=== PATIENT | male | born 1955 | race Caucasian/White ===

== ENCOUNTER 2017-09-28 09:46 | Inpatient (IN) | payer BC ==
[2017-09-28] MEDS ORDERED: NITROGLYCERIN 2% 1 GM OINT PKT TD (10:06)
[2017-09-28] MEDS ORDERED: ASPIRIN 81 MG TAB PO (10:06)
[2017-09-28] MEDS ORDERED: NITROGLYCERIN (SL) 0.4 MG TAB SL (10:30)
[2017-09-28 10:43] LABS: ADD MAN DIFF? NO
[2017-09-28 10:45] LABS: WHITE BLOOD COUNT 16.2 10^3/ul (4.8-10.8)
[2017-09-28 10:45] LABS: BASOPHIL # 0.1 10^3/ul (0.0-0.1); BASOPHILS % 0.4 % (0.0-2.0); EOSINOPHILS # 0.1 10^3/ul (0.0-0.5); EOSINOPHILS % 0.7 % (0.0-7.0); HEMATOCRIT 39.9 % (42.0-52.0); HEMOGLOBIN 12.7 g/dl (14.0-18.0); LYMPHOCYTES # 2.8 10^3/ul (0.8-2.9); LYMPHOCYTES % 17.3 % (15.0-51.0); MEAN CORPUSCULAR HEMOGLOBIN 27.3 pg (29.0-33.0); MEAN CORPUSCULAR HGB CONC 31.8 g/dl (32.0-37.0); MEAN CORPUSCULAR VOLUME 85.6 fl (82.0-101.0); MEAN PLATELET VOLUME 8.9 fl (7.4-10.4); MONOCYTE # 1.1 10^3/ul (0.3-0.9); MONOCYTES % 6.7 % (0.0-11.0); NEUTROPHILS % 74.4 % (39.0-77.0); PLATELET COUNT 473 10^3/UL (140-415); RED BLOOD COUNT 4.66 10^6/ul (4.70-6.10); RED CELL DISTRIBUTION WIDTH 14.9 % (11.5-14.5)
[2017-09-28] MEDS: ONDANSETRON 4 MG INJ IV ×2 (11:08→15:54)
[2017-09-28 11:13] LABS: ALANINE AMINOTRANSFERASE 20 IU/L (13-69); ALBUMIN 4.1 g/dl (3.3-4.9); ALKALINE PHOSPHATASE 137 IU/L (42-121); ASPARTATE AMINO TRANSFERASE 23 IU/L (15-46); LIPASE 146 U/L (23-300); TOTAL PROTEIN 8.4 g/dl (6.1-8.1)
[2017-09-28 11:18] LABS: INR 1.06; PARTIAL THROMBOPLASTIN TIME 33.8 Sec (25.0-35.0); PROTIME 13.9 Sec (11.9-14.9); PT RATIO 1.1
[2017-09-28 11:22] LABS: ANION GAP 18 (8-16); BLOOD UREA NITROGEN 18 mg/dl (7-20); CALCIUM 9.5 mg/dl (8.4-10.2); CARBON DIOXIDE 26 mmol/L (21-31); CHLORIDE 104 mmol/L (97-110); CREATININE 1.45 mg/dl (0.61-1.24); GLUCOSE 98 mg/dl (70-220); POTASSIUM 3.9 mmol/L (3.5-5.1); SODIUM 144 mmol/L (135-144)
[2017-09-28 11:36] LABS: TROPONIN-I < 0.012 ng/ml (0.00-0.12)
[2017-09-28] MEDS ORDERED: ZOLPIDEM 5 MG TAB PO (12:00)
[2017-09-28] MEDS ORDERED: NACL 0.9% 3 ML SYG IV (12:00)
[2017-09-28] MEDS ORDERED: HYDROCODONE/APAP (5/325) TAB PO (12:00)
[2017-09-28] MEDS ORDERED: MAGNESIUM HYDROXIDE 30ML CUP PO (12:00)
[2017-09-28] MEDS ORDERED: ONDANSETRON 4 MG INJ IV (12:00)
[2017-09-28] MEDS ORDERED: morphine 2 MG INJ IV (12:00)
[2017-09-28] MEDS ORDERED: DOCUSATE SODIUM 100 MG CAP PO (12:00)
[2017-09-28] MEDS ORDERED: ACETAMINOPHEN 325 MG TAB PO ×2 (12:00)
[2017-09-28 13:42] LABS: CARCINOEMBRYONIC ANTIGEN 1.3 ng/ml (0.0-5.0)
[2017-09-28 13:47] LABS: CANCER ANTIGEN 19-9 < 1.4 U/ml (0.0-37.0)
[2017-09-28] MEDS: 1/2 NS + KCL 20 MEQ 1,000 ML IV (13:49)
[2017-09-28 15:39] LABS: CREATINE KINASE 86 IU/L (23-200)
[2017-09-28 15:52] LABS: CK INDEX 0.5
[2017-09-28 15:53] LABS: TROPONIN-I < 0.012 ng/ml (0.00-0.12)
[2017-09-28 16:12] LABS: ADD UMIC YES; UR ASCORBIC ACID NEGATIVE (NEGATIVE); UR BACTERIA FEW /HPF (NONE SEEN); UR BILIRUBIN (Dip) NEGATIVE (NEGATIVE); UR BLOOD (Dip) NEGATIVE (NEGATIVE); UR CLARITY CLEAR (CLEAR); UR COLOR YELLOW (YELLOW); UR GLUCOSE (Dip) NEGATIVE (NEGATIVE); UR KETONES (Dip) 2+ mg/dL (NEGATIVE); UR LEUKOCYTE ESTERASE (Dip) 2+ Leu/ul (NEGATIVE); UR MUCUS FEW /HPF (NONE SEEN); UR NITRITE (Dip) NEGATIVE (NEGATIVE); UR RBC 8 /HPF (0-5); UR SPECIFIC GRAVITY (Dip) 1.024 (1.003-1.030); UR TOTAL PROTEIN (Dip) 2+ mg/dl (NEGATIVE); UR UROBILINOGEN (Dip) 2+ mg/dL (NEGATIVE); UR WBC 51 /HPF (0-5)
[2017-09-28 19:38] LABS: COMPLEMENT C3 106 mg/dl (88-165); COMPLEMENT C4 29 mg/dl (14-44)
[2017-09-28 22:35] LABS: CREATINE KINASE 94 IU/L (23-200)
[2017-09-28 22:48] LABS: CK INDEX 0.8
[2017-09-28 22:49] LABS: CK-MB 0.77 ng/ml (0.0-2.4); TROPONIN-I < 0.012 ng/ml (0.00-0.12)
[2017-09-29 08:17] LABS: ADD MAN DIFF? NO; HAAIG REFLEX REFLEX FILED
[2017-09-29 08:25] LABS: BASOPHIL # 0.1 10^3/ul (0.0-0.1); BASOPHILS % 0.4 % (0.0-2.0); EOSINOPHILS # 0.2 10^3/ul (0.0-0.5); EOSINOPHILS % 1.3 % (0.0-7.0); HEMATOCRIT 37.6 % (42.0-52.0); LYMPHOCYTES # 2.6 10^3/ul (0.8-2.9); LYMPHOCYTES % 17.6 % (15.0-51.0); MEAN CORPUSCULAR HEMOGLOBIN 27.1 pg (29.0-33.0); MEAN CORPUSCULAR HGB CONC 31.9 g/dl (32.0-37.0); MEAN CORPUSCULAR VOLUME 85.1 fl (82.0-101.0); MONOCYTE # 0.9 10^3/ul (0.3-0.9); MONOCYTES % 6.2 % (0.0-11.0); NEUTROPHIL # 11.1 10^3/ul (1.6-7.5); NEUTROPHILS % 74.1 % (39.0-77.0); PLATELET COUNT 483 10^3/UL (140-415); RED BLOOD COUNT 4.42 10^6/ul (4.70-6.10); RED CELL DISTRIBUTION WIDTH 14.6 % (11.5-14.5)
[2017-09-29 08:35] LABS: HEMOGLOBIN A1C 5.1 % (0-5.9)
[2017-09-29 08:48] LABS: ALANINE AMINOTRANSFERASE 15 IU/L (13-69); ALBUMIN 3.7 g/dl (3.3-4.9); ALKALINE PHOSPHATASE 120 IU/L (42-121); ANION GAP 19 (8-16); ASPARTATE AMINO TRANSFERASE 21 IU/L (15-46); BILIRUBIN,INDIRECT 1.2 mg/dl (0-1.1); BILIRUBIN,TOTAL 1.2 mg/dl (0.2-1.3); BLOOD UREA NITROGEN 24 mg/dl (7-20); CALCIUM 8.8 mg/dl (8.4-10.2); CARBON DIOXIDE 23 mmol/L (21-31); CHLORIDE 103 mmol/L (97-110); CHOL/HDL RATIO 4.9 RATIO; CHOLESTEROL 182 mg/dl (100-200); CREATININE 1.46 mg/dl (0.61-1.24); GLUCOSE 73 mg/dl (70-220); HDL CHOLESTEROL 37 mg/dl (30-78); LDL CHOLESTEROL,CALCULATED 127 mg/dl; MAGNESIUM 1.8 mg/dl (1.7-2.5); PHOSPHORUS 3.9 mg/dl (2.5-4.9); POTASSIUM 3.8 mmol/L (3.5-5.1); SODIUM 141 mmol/L (135-144); TOTAL PROTEIN 7.4 g/dl (6.1-8.1); TRIGLYCERIDES 92 mg/dl (0-149)
[2017-09-29 09:22] LABS: FREE THYROXINE INDEX (Calc) 5.51 ug/ml (0.65-3.89)
[2017-09-29 09:24] LABS: T3 UPTAKE 35.1 % (23.5-40.5); T4 (THYROXINE) 15.7 ug/dl (5.5-11.0)
[2017-09-29 09:36] LABS: HEPATITIS B SURFACE ANTIGEN NEGATIVE (NEGATIVE)
[2017-09-29 10:07] LABS: ALPHA FETOPROTEIN 1.81 IU/L (0.00-7.21)
[2017-09-29] MEDS: 1/2 NS + KCL 20 MEQ 1,000 ML IV (12:34)
[2017-09-29 12:59] LABS: HEPATITIS B CORE ANTIBODY NEGATIVE (NEGATIVE); HEPATITIS C VIRAL ANTIBODY NEGATIVE (NEGATIVE)
[2017-09-29] MEDS: CEFTRIAXONE 1 GM/50 ML (PMX) 50 ML IVPB (17:06)
[2017-09-29 23:41] LABS: SODIUM,URINE RANDOM 114 mmol/L (30-90)
[2017-09-29 23:45] LABS: CREATININE,URINE RANDOM 194.88 mg/dl (20-370); PROTEIN/CREAT RATIO 0.18 RATIO
[2017-09-30] MEDS: 1/2 NS + KCL 20 MEQ 1,000 ML IV (05:09)
[2017-09-30 06:02] LABS: ADD MAN DIFF? NO
[2017-09-30 06:07] LABS: BASOPHIL # 0.1 10^3/ul (0.0-0.1); BASOPHILS % 0.3 % (0.0-2.0); EOSINOPHILS # 0.2 10^3/ul (0.0-0.5); EOSINOPHILS % 1.3 % (0.0-7.0); HEMATOCRIT 35.2 % (42.0-52.0); HEMOGLOBIN 11.6 g/dl (14.0-18.0); LYMPHOCYTES # 2.1 10^3/ul (0.8-2.9); LYMPHOCYTES % 13.1 % (15.0-51.0); MEAN CORPUSCULAR HEMOGLOBIN 27.8 pg (29.0-33.0); MEAN CORPUSCULAR VOLUME 84.2 fl (82.0-101.0); MEAN PLATELET VOLUME 8.7 fl (7.4-10.4); MONOCYTES % 6.5 % (0.0-11.0); NEUTROPHIL # 12.3 10^3/ul (1.6-7.5); NEUTROPHILS % 78.2 % (39.0-77.0); PLATELET COUNT 426 10^3/UL (140-415); RED BLOOD COUNT 4.18 10^6/ul (4.70-6.10); RED CELL DISTRIBUTION WIDTH 14.6 % (11.5-14.5)
[2017-09-30 06:07] LABS: WHITE BLOOD COUNT 15.8 10^3/ul (4.8-10.8)
[2017-09-30 06:29] LABS: ANION GAP 16 (8-16); BLOOD UREA NITROGEN 22 mg/dl (7-20); CALCIUM 8.6 mg/dl (8.4-10.2); CARBON DIOXIDE 27 mmol/L (21-31); CHLORIDE 103 mmol/L (97-110); CREATININE 1.31 mg/dl (0.61-1.24); GLUCOSE 113 mg/dl (70-220); POTASSIUM 3.8 mmol/L (3.5-5.1); SODIUM 142 mmol/L (135-144)
[2017-09-30] MEDS: SOD CHLORIDE 0.9% 500 ML (15:40)
[2017-09-30] MEDS: MIDAZOLAM 1 MG/ML 2 ML INJ ×2 (15:40→16:22)
[2017-09-30] MEDS: FENTAnyl 50 MCG/ML VIAL (16:24)
[2017-09-30] MEDS: LIDOCAINE 1% (MDV) 10 ML INJ (16:30)
[2017-09-30] MEDS: DEXTROSE 5%-0.45% NACL 1,000 ML IV (17:55)
[2017-09-30 20:12] LABS: PSA, FREE 0.3 ng/mL
[2017-10-01 07:12] LABS: HEMATOCRIT 35.6 % (42.0-52.0); HEMOGLOBIN 11.5 g/dl (14.0-18.0); MEAN CORPUSCULAR HEMOGLOBIN 27.6 pg (29.0-33.0); MEAN CORPUSCULAR HGB CONC 32.3 g/dl (32.0-37.0); MEAN CORPUSCULAR VOLUME 85.4 fl (82.0-101.0); MEAN PLATELET VOLUME 8.9 fl (7.4-10.4); PLATELET COUNT 438 10^3/UL (140-415); RED BLOOD COUNT 4.17 10^6/ul (4.70-6.10); RED CELL DISTRIBUTION WIDTH 14.5 % (11.5-14.5)
[2017-10-01 07:12] LABS: WHITE BLOOD COUNT 11.8 10^3/ul (4.8-10.8)
[2017-10-01 07:17] LABS: ADD MAN DIFF? YES
[2017-10-01 07:26] LABS: IRON 23 ug/dl (35-150); URIC ACID 5.1 mg/dl (3.1-7.9)
[2017-10-01 07:26] LABS: LACTATE DEHYDROGENASE 280 IU/L (313-618)
[2017-10-01 07:36] LABS: % IRON SATURATION 7 % SAT (22-52); TOTAL IRON BINDING CAPACITY 326 ug/dl (241-421)
[2017-10-01 07:49] LABS: ANISOCYTOSIS 1+ (0-0); BURR CELLS 1+ (0-0); EOSINOPHILS % (M) 3 % (0-7); LYMPHOCYTES #M 2.2 10^3/ul (0.8-2.9); LYMPHOCYTES % (M) 19 % (15-51); MONOCYTE #M 0.5 10^3/ul (0.3-0.9); MONOCYTES % (M) 5 % (0-11); PLATELET ESTIMATE NORMAL; POIKILOCYTOSIS 1+ (0-0); SEGMENTED NEUTROPHILS (M) % 73 % (39-77); SMUDGE%M 2 % (0-0)
[2017-10-01 08:17] LABS: FERRITIN 37.8 ng/ml (11.1-264.0)
[2017-10-01 08:55] LABS: IMMUNOGLOBULIN G 1457 mg/dl (700-1600); IMMUNOGLOBULIN M 75 mg/dl (40-230)
[2017-10-01 10:40] LABS: IMMUNOGLOBULIN A 148 mg/dl (70-400)
[2017-10-01 13:07] LABS: MITOCHONDRIAL TB NEGATIVE (NEGATIVE); SMOOTH MUSCLE AB SCREEN NEGATIVE (NEGATIVE)
[2017-10-01] MEDS: FENTAnyl 50 MCG/ML VIAL (14:14)
[2017-10-01] MEDS: MIDAZOLAM 1 MG/ML 2 ML INJ ×2 (14:54)
[2017-10-01] MEDS: DEXTROSE 5%-0.45% NACL 1,000 ML IV ×2 (16:00→21:25)
[2017-10-01] MEDS ORDERED: morphine LIQ (10 MG/5 ML) CUP PO (16:00)
[2017-10-01 19:51] LABS: ANA SCREEN POSITIVE (NEGATIVE)
[2017-10-01] MEDS: SOD FERRIC GLUC COMPLX 125 MG in SOD CHLORIDE 0.9% 100 ML IVPB (21:04)
[2017-10-02 12:55] LABS: ANION GAP 15 (8-16); BLOOD UREA NITROGEN 14 mg/dl (7-20); CALCIUM 8.7 mg/dl (8.4-10.2); CARBON DIOXIDE 23 mmol/L (21-31); CHLORIDE 106 mmol/L (97-110); CREATININE 1.14 mg/dl (0.61-1.24); GLUCOSE 87 mg/dl (70-220); POTASSIUM 3.9 mmol/L (3.5-5.1); SODIUM 140 mmol/L (135-144)
[2017-10-02 13:26] LABS: ANA PATTERN HOMOGENEOUS
[2017-10-02 15:41] LABS: BETA-2 MICROGLOBULIN 3.14 mg/L (< OR = 2.51)
[2017-10-02] MEDS: SOD FERRIC GLUC COMPLX 125 MG in SOD CHLORIDE 0.9% 100 ML IVPB (17:10)
[2017-10-02 17:17] LABS: HAPTOGLOBIN 330 mg/dL (43-212)
[2017-10-02] MEDS: DEXTROSE 5%-0.45% NACL 1,000 ML IV (21:51)
[2017-10-03] MEDS: DEXTROSE 5%-0.45% NACL 1,000 ML IV ×2 (16:00→21:59)
[2017-10-03] MEDS: SOD FERRIC GLUC COMPLX 125 MG in SOD CHLORIDE 0.9% 100 ML IVPB (17:56)
== END 2017-10-04 22:40 | disposition short-term general hospital (02) | DRG 543 ==
LOC: E/R 09:46 → MS3 11:41 → MS4 20:55
PROC: 0W9G3ZX Drainage of Peritoneal Cavity, Percutaneous Approach, Diagnostic (ICD-10-PCS; principal; 2017-10-01 13:05)
PROC: 0DB98ZX Excision of Duodenum, Via Natural or Artificial Opening Endoscopic, Diagnostic (ICD-10-PCS; 2017-10-01 13:05)
PROC: 0DB68ZX Excision of Stomach, Via Natural or Artificial Opening Endoscopic, Diagnostic (ICD-10-PCS; 2017-10-01 13:05)
PROC: 0DB58ZX Excision of Esophagus, Via Natural or Artificial Opening Endoscopic, Diagnostic (ICD-10-PCS; 2017-10-01 13:05)
DX: C49.4 Malignant neoplasm of connective and soft tissue of abdomen (principal); N39.0 Urinary tract infection, site not specified; R18.8 Other ascites; N17.9 Acute kidney failure, unspecified; K31.1 Adult hypertrophic pyloric stenosis; K43.6 Other and unspecified ventral hernia with obstruction, without gangrene; N13.6 Pyonephrosis; K26.9 Duodenal ulcer, unspecified as acute or chronic, without hemorrhage or perforation; D50.9 Iron deficiency anemia, unspecified; K20.9 Esophagitis, unspecified; K44.9 Diaphragmatic hernia without obstruction or gangrene; K29.80 Duodenitis without bleeding; B96.4 Proteus (mirabilis) (morganii) as the cause of diseases classified elsewhere; K80.20 Calculus of gallbladder without cholecystitis without obstruction; R11.2 Nausea with vomiting, unspecified
CPT/HCPCS: 36415; 71045; 71250; 74176; 76705; 76775; 77012; 80048; 80053; 80061; 80076; 81001; 81003; 82105; 82378; 82550; 82553; 82570; 82728; 82784; 82787; 83010; 83036; 83540; 83615; 83690; 83735; 84100; 84153; 84154; 84155; 84165; 84300; 84436; 84479; 84484; 84560; 85025; 85610; 85730; 86038; 86160; 86255; 86301; 86320; 86704; 86709; 86803; 87040; 87086; 87340; 88305; 88307; 88312; 88313; 88341; 88342; 89190; 93005; 93306; 96374; 99285-25